=== PATIENT | female | born 2000 | race Caucasian/White ===

== ENCOUNTER 2023-11-06 14:20 | Outpatient (CLI) | payer BC, SELFPAY ==
--- NOTE | ~2023-11-06 | US_ITS ---
Pelvic ultrasound. Clinical History: First trimester , psoas days and viability Technique: Realtime transabdominal and transvaginal scanning of the pelvis was performed. Color flow Doppler and Doppler spectral analysis were performed. Findings: The uterus is anteverted, and contains an intrauterine gestation. [place]-rump length of 3.5 cm corresponds to an estimated gestational age of 10 weeks 3 days. heart rate is 173 bpm.. The right ovary is not visualized. No significant right ovarian or adnexal mass is seen. The left ovary measures 4.4 x 2.6 x 3.0 cm. No significant left ovarian or adnexal mass is seen. There is no evidence of free fluid in the cul de sac. Impression: Live intrauterine gestation, with estimated gestational age of 10 weeks 3 days. heart rate is 1 73 bpm. Reviewed, dictated and finalized at [facility]. Impression: Live intrauterine gestation, with estimated gestational age of 10 weeks 3 days. heart rate is 173 bpm.
== END 2023-11-06 14:21 | disposition home or self-care (01) ==
PROVIDERS: PCP Advanced Practice Midwife; Visit Provider Advanced Practice Midwife
DX: Z36.87 Encounter for antenatal screening for uncertain dates (principal); O36.80X0 Pregnancy with inconclusive fetal viability, not applicable or unspecified; Z3A.10 10 weeks gestation of pregnancy
CPT/HCPCS: 76801

== ENCOUNTER 2023-12-31 10:24 | Outpatient (CLI) | payer BC, SELFPAY ==
--- NOTE | ~2023-12-31 | US_ITS ---
EXAMINATION: US OB /maternal detail DATE: 12/31/2023 10:57 INDICATION: anatomic survey. TECHNIQUE: Real-time ultrasound of the pelvis was performed. COMPARISON: Ultrasound 11/06/2023 FINDINGS: There is a single living fetus in breech presentation. The placenta is posterior, 5.6 cm from the ce rvix. heart rate is 143 beats per minute (bpm). The amniotic fluid volume is subjectively charo l. The cervical length is 3.0 cm on transabdominal images, which is normal. The following biometric data were obtained: Biparietal diameter (BPD): 4.1 cm; head circumference (HC): 15.5 cm; abdominal circumference (AC): 13 .7 cm; femur length (FL): 2.7 cm. These measurements are concordant. Estimated weight is 248 g +/- 37 g, which correlates with the 65th percentile when 05/31/24 is u sed as estimated date of delivery. As single measurements, these parameters are each equal to the following estimated gestational ages: BPD: 18 weeks 4 days. HC: 18 weeks 3 days. AC: 19 weeks 1 days. FL: 18 weeks 0 days. estimated gestational age based solely on measurements from this exam is 18 weeks 4 days +/- 1 weeks 2 days. The cerebral ventricles, cerebellum, cisterna magna, nuchal fold, lip, and spine are normal. The hear t is normal. The diaphragm, stomach, kidneys, and bladder are normal. There are two umbilical arterie s to yield a 3-vessel cord. The cord insertion is normal. IMPRESSION: 1. Single living fetus in breech presentation. 2. Estimated weight is 248 g +/- 37 g, which correlates with the 65th percentile when 05/31/24 is used as estimated date of delivery. This date was set by ultrasound on 11/06/2023. 3. Normal anatomic survey. Reviewed, dictated and finalized at location A. LAYER IMPRESSION: 1. Single living fetus in breech presentation. 2. Estimated weight is 248 g +/- 37 g, which correlates with the 65th pe rcentile when 05/31/24 is used as estimated date of delivery. This date was set by ultrasound on 11/06/2023. 3. Normal anatomic survey.
== END 2023-12-31 10:25 | disposition home or self-care (01) ==
LOC: MICIMG 10:25
PROVIDERS: PCP Obstetrics & Gynecology Gynecology; Visit Provider Obstetrics & Gynecology Gynecology
DX: Z36.9 Encounter for antenatal screening, unspecified (principal)
CPT/HCPCS: 76805

== ENCOUNTER 2024-03-19 10:44 | Outpatient (RCR) | payer OTHER, SELFPAY ==
[2024-03-19 11:21] VITALS: BP 125/70; PULSE 109
== END 2024-06-10 18:00 | disposition home or self-care (01) ==
LOC: ANHOBOP 10:44
PROVIDERS: Visit Provider Obstetrics & Gynecology Gynecology
DX: O36.8130 Decreased fetal movements, third trimester, not applicable or unspecified (principal); Z3A.29 29 weeks gestation of pregnancy
CPT/HCPCS: 59025

== ENCOUNTER 2024-04-22 11:10 | Outpatient (CLI) | payer OTHER, SELFPAY ==
--- NOTE | ~2024-04-22 | US_ITS ---
IMPRESSION: Single intrauterine gestation in vertex presentation with cardiac activit y identified. Approximate gestational age is 34 weeks and 6 days. Estimated weight is within the 54th percentile, as detailed above. EXAM EXAMINATION: US OB follow up DATE: 04/22/2024 21:04 CDT INDICATION: Size smaller than dates COMPARISON: 12/31/2023 TECHNIQUE: Real-time transabdominal obstetric ultrasound. FINDINGS: 1. There is a single intrauterine gestation in vertex presentation. The placenta is posterior within the fundus. cardiac activity and movement is noted with a heart rate of 154 beats per minute. The following biometric data were obtained: Biparietal diameter (BPD): 8.8 cm; head circumference (HC): 31.7 cm; abdominal circumference (AC): 31.5 cm; femur length (FL): 6.3 cm. These measurements are concordant. Estimated weight is 2507 g +/- 376 g, which correlates with the 54th percentile when 05/28/2024 is used as estimated date of delivery. As single measurements, these parameters are each equal to the following estimated gestational ages: BPD: 35 weeks 5 days. HC: 35 weeks 4 days. AC: 35 weeks 3 days. FL: 32 weeks 5 days. estimated gestational age based solely on measurements from this exam is 34 weeks 6 days +/- 2 weeks 3 days. Amniotic fluid index measures 18.1 cm (within normal limits, between 8 and 25cm) IMPRESSION: Single intrauterine gestation in vertex presentation with cardiac activity identified. Approximate gestational age is 34 weeks and 6 days. Estimated weight is within the 54th percentile, as detailed above. Reviewed, dictated and finalized at location A.
== END 2024-04-22 11:11 | disposition home or self-care (01) ==
LOC: MICIMG 11:10
PROVIDERS: PCP Obstetrics & Gynecology Gynecology; Visit Provider Obstetrics & Gynecology Gynecology
DX: O36.5930 Maternal care for other known or suspected poor fetal growth, third trimester, not applicable or unspecified (principal); Z3A.00 Weeks of gestation of pregnancy not specified
CPT/HCPCS: 76816

== ENCOUNTER 2024-04-22 17:40 | Outpatient (CLI) | payer OTHER, SELFPAY ==
[2024-04-22 18:07] VITALS: BP 125/79; PULSE 124
[2024-04-22 18:30] VITALS: BP 112/60; PULSE 120; TEMP 37.1
--- NOTE | 2024-04-22 18:36 | PC.NURSE ---
Called Dr. Paredes, update on pt, leaking, DFM, negative ROM plus, pt marking movement 6 times in thirty minutes, tracing, and blood pressure. Orders received to discharge pt with instructions to keep next scheduled appointment and when to return to the unit.
[2024-04-22 18:38] VITALS: BP 125/79; PULSE 124
--- NOTE | 2024-04-22 18:43 | PC.NURSE ---
Pt discharged with instructions to keep next scheduled appointment and when to return to the unit, pt verbalizes understanding.
[2024-04-22 18:49] LABS: OBXCEM ROM Plus Negative (Negative)
== END 2024-04-22 18:43 | disposition home or self-care (01) ==
LOC: ANHOBOP 17:52 → ANHOBPP 17:55
PROVIDERS: Visit Provider Obstetrics & Gynecology Gynecology
DX: O42.90 Premature rupture of membranes, unspecified as to length of time between rupture and onset of labor, unspecified weeks of gestation (principal); Z3A.00 Weeks of gestation of pregnancy not specified
CPT/HCPCS: 59025; 84112; 99199

== ENCOUNTER 2024-04-28 12:48 | Outpatient (CLI) | payer OTHER, SELFPAY ==
--- NOTE | 2024-04-28 13:00 | PC.NURSE ---
Patient states that her foot pain woke her up during the night. R foot was noted to be more swollen than the left. Patient unable to flex much without pain. Good pedal pulse noted. Foot is also tender to the touch on the inner aspect and radiating toward the ankle.
--- NOTE | 2024-04-28 13:30 | PC.NURSE ---
Dr Paredes informed of R foot pain, good pulses, no HTN/Pre E symptoms other than swelling.
--- NOTE | 2024-04-28 13:31 | PC.NURSE ---
Orders from Dr Paredes instructed to have patient evaluated in the ER.
[2024-04-28 13:38] VITALS: BP 124/68; PULSE 103
--- NOTE | 2024-04-28 13:55 | PC.NURSE ---
Patient taken to ER for evaluation. Plan discussed with patient and spouse, agreeable to being seen in ER.
== END 2024-04-28 13:55 | disposition home or self-care (01) ==
LOC: ANHOBOP 12:52 → ANHOBPP 12:53
PROVIDERS: Visit Provider Obstetrics & Gynecology Gynecology
DX: O26.899 Other specified pregnancy related conditions, unspecified trimester (principal); R60.9 Edema, unspecified
CPT/HCPCS: 59025; 99199

== ENCOUNTER 2024-04-28 13:53 | Emergency (ER) | payer OTHER, SELFPAY ==
--- NOTE | ~2024-04-28 | US_ITS ---
EXAMINATION: US venous doppler LE RT DATE: 04/28/2024 15:08 INDICATION: Right lower limb pain and swelling TECHNIQUE: Grayscale ultrasound images without and with compression and Doppler ultrasound images of the right lower extremity veins were obtained. COMPARISON: None. FINDINGS: The visualized portions of right common femoral vein, profunda (deep) femoral vein, femoral vein, pop liteal vein, peroneal trunk, posterior tibial veins, peroneal veins, gastrocnemius vein and greater s aphenous vein outflow are patent. IMPRESSION: 1. No deep venous thrombosis in the right lower limb. Reviewed, dictated and finalized at location B.
--- NOTE | ~2024-04-28 | XR_ITS ---
XR foot RT min 3V Ordering provider: Ya Ernandez History: . R foot pain . Comparison: None. FINDINGS: BONES: No acute fracture or dislocation. JOINT SPACES: Normal. No tarsal coalition. SOFT TISSUES: Normal. IMPRESSION: No acute osseous abnormality of the right foot. Reviewed, dictated and finalized at location A.
[2024-04-28 13:59] VITALS: BP 132/82; PULSE 115; RESP 20; TEMP 36.6; O2SAT 100
--- NOTE | 2024-04-28 14:16 | ED_ITS ---
HPI - Extremity Injury (Lower) General Chief Complaint: Extremity Injury, Lower <Ya Ernandez APRN - Last Filed: 04/28/24 14:17> Stated Complaint: left foot pain <Ya Ernandez APRN - Last Filed: 04/28/24 14:17> Time Seen by Provider: 04/28/24 14:10 <Ya Ernandez APRN - Last Filed: 04/28/24 14:17> Focused HPI: Patient is a 23-year-old female who presents to the ER with right lower extremity pain, tingling, and swelling. She reports she is approximately 35 weeks and woke up this morning with extreme right ankle/foot pain. Patient denies any history of blood clots or other medical history. She denies any chest pain, shortness of breath, abdominal pain, recent fevers. GENERAL: Well-appearing, well-nourished, and in no acute distress. HEAD: Normocephalic, atraumatic. CHEST: Clear to auscultation. ?No respiratory distress. HEART: Regular rate and rhythm.? NEURO: ?Alert and oriented x3. Patient screened in triage and initial orders placed.? ?Additional care and disposition to be based upon?diagnostic testing and treatment. <Ya Ernandez APRN - Last Filed: 04/28/24 14:17> History of Present Illness HPI Narrative: I agree with the above HPI <Kosta Parsons MD - Last Filed: 04/28/24 21:45> Exam Narrative: APPEARANCE: Well appearing, no pain, no distress, well-nourished. HEAD: normocephalic, atraumatic. EYES: PERRLA/EOMI, conjunctivae clear. NOSE: Normal no drainage EARS:TMS clear with good light reflex. THROAT: Pharynx clear, no exudate. NECK: Supple. No adenopathy, no masses. RESPIRATORY: Airway patent, respirations nonlabored. Clear to auscultation bilaterally, no rales, rhonchi, wheezing. CARDIOVASCULAR: Regular rate and rhythm without murmurs rubs or gallops. ABDOMINAL: Soft, nontender, nondistended, normal bowel sounds MUSCULOSKELETAL: Mild lower extremity swelling for bilateral lower extremity NEURO: Alert. Cranial nerves II through XII intact. Good gait. Good coordination SKIN: Warm, dry. Normal Color PSYCHIATRIC: Normal affect/mood. <Kosta Parsons MD - Last Filed: 04/28/24 21:45> Course Vital Signs Vital signs: Vital Signs Temperature 97.8 F 04/28/24 13:59 Pulse Rate 115 H 04/28/24 13:59 Respiratory Rate 20 04/28/24 13:59 Blood Pressure 132/82 04/28/24 13:59 Pulse Oximetry 100 04/28/24 13:59 Oxygen Delivery Room Air 04/28/24 13:59 Temperature 97.8 F 04/28/24 16:24 Pulse Rate 117 H 04/28/24 16:24 Respiratory Rate 16 04/28/24 16:24 Blood Pressure 120/78 04/28/24 16:24 Pulse Oximetry 100 04/28/24 16:24 Oxygen Delivery Room Air 04/28/24 13:59 <Ya Ernandez [employer] - Last Filed: 04/28/24 14:17> Vital Signs Temperature 97.8 F 04/28/24 13:59 Pulse Rate 115 H 04/28/24 13:59 Respiratory Rate 20 04/28/24 13:59 Blood Pressure 132/82 04/28/24 13:59 Pulse Oximetry 100 04/28/24 13:59 Oxygen Delivery Room Air 04/28/24 13:59 Temperature 97.8 F 04/28/24 16:24 Pulse Rate 117 H 04/28/24 16:24 Respiratory Rate 16 04/28/24 16:24 Blood Pressure 120/78 04/28/24 16:24 Pulse Oximetry 100 04/28/24 16:24 Oxygen Delivery Room Air 04/28/24 13:59 <Kosta Parsons MD - Last Filed: 04/28/24 21:45> MDM - Extremity Injury (Lower) MDM Narrative Medical decision making narrative: 23-year-old female that is 35 weeks presented emergency department for evaluation for lower extremity swelling and foot pain. Patient is mildly tachycardic but has had persistent tachycardia and patient is very anxious about being here. Patient was offered further workup and IV fluids but patient declined. Ultrasound was negative for DVT x-ray was negative for fracture. Suspect this is swelling associated with . Patient was advised to drink plenty of fluids and to elevate her feet. All questions concerns were addressed. <Kosta Parsons MD - Last Filed: 04/28/24 21:45> Differential Diagnosis Differential diagnosis: Likely ankle sprain and strain and other (DVT) <Kosta Parsons MD - Last Filed: 04/28/24 21:45> Discharge Plan Discharge Clinical Impression: Localized swelling of both lower legs <Ya Ernandez APRN - Last Filed: 04/28/24 14:17> Patient Disposition: Home, Self-Care <Ya Ernandez APRN - Last Filed: 04/28/24 14:17> Condition: Stable <Ya Ernandez APRN - Last Filed: 04/28/24 14:17> Instructions: Antibiotic Form, Leg Edema (ED) <Ya Ernandez APRN - Last Filed: 04/28/24 14:17> Additional Instructions: Wear compression stockings, elevate your feet at nighttime. Have close follow-up with your primary care physician and with [facility]. If you have any worsening symptoms then please call or return to the emergency department. <Ya Ernandez APRN - Last Filed: 04/28/24 14:17> Patient Language: Tristanian <Ya Ernandez APRN - Last Filed: 04/28/24 14:17> Follow-up/Referrals: UNKNOWN,DOCTOR [Primary Care Provider] - <Ya Ernandez APRN - Last Filed: 04/28/24 14:17>
[2024-04-28 16:24] VITALS: BP 120/78; PULSE 117; RESP 16; TEMP 36.6; O2SAT 100
== END 2024-04-28 16:41 | disposition home or self-care (01) ==
PROVIDERS: Emergency Provider Emergency Medicine
DX: O26.893 Other specified pregnancy related conditions, third trimester (principal); R22.43 Localized swelling, mass and lump, lower limb, bilateral; Z3A.35 35 weeks gestation of pregnancy
CPT/HCPCS: 73630; 93971; 99284

== ENCOUNTER 2024-05-17 11:18 | Outpatient (CLI) | payer OTHER, SELFPAY ==
--- NOTE | ~2024-05-17 | US_ITS ---
EXAMINATION: US OB follow up DATE: 05/17/2024 11:48 INDICATION: Estimated size less than expected for estimated gestational age TECHNIQUE: Real-time ultrasound of the pelvis was performed. The interpreting radiologist was not pre sent for the study. COMPARISON: None. FINDINGS: There is a single living fetus in vertex presentation. The placenta is posterior fundal and not low- lying. heart rate is 142 beats per minute (bpm). The amniotic fluid index is 12.2 cm, which is normal (5th%-95%: 7.3-23.9 cm at 38 weeks estimated gestational age). The following biometric data were obtained: BPD: 9.4 cm -> 38 weeks 2 days Head circumference: 33.5 cm -> 38 weeks 2 days Abdominal circumference: 32.7 cm -> 36 weeks 4 days Femur length: 6.9 cm -> 35 weeks 1 days These measurements are concordant. Head circumference to abdominal circumference ratio: 1.02 (normal range 0.92-1.05). Estimated weight: 2989 g (+/-) 448 g or 6 lbs. 9 oz. (+/-) 1 lb. 0 oz. IMPRESSION: 1. Single living fetus in vertex presentation with heart rate of 142 bpm. 2. Normal amniotic fluid index of 12.2 cm. 3. Estimated weight is 27th percentile by Hadlock criteria when 05/31/2024 is used as the estima dillan date of delivery (RANDI). This is decreased from 55th percentile on study dated 04/22/2024 Please co rrelate with clinical information or earlier ultrasounds for most accurate RANDI. Reviewed, dictated and finalized at location A. IMPRESSION: 1. Single living fetus in vertex presentation with heart rate of 142 bpm. 2. Normal amniotic fluid index of 12.2 cm. 3. Estimated weight is 27th percentile by Hadlock criteria when 05/31/2024 is used as the estimated date of delivery (RANDI). This is decreased from 55th p ercentile on study dated 04/22/2024 Please correlate with clinical information o r earlier ultrasounds for most accurate RANDI.
== END 2024-05-17 11:19 | disposition home or self-care (01) ==
LOC: MICIMG 11:18
PROVIDERS: PCP Obstetrics & Gynecology Gynecology; Visit Provider Obstetrics & Gynecology Gynecology
DX: O36.5930 Maternal care for other known or suspected poor fetal growth, third trimester, not applicable or unspecified (principal)
CPT/HCPCS: 76816

== ENCOUNTER 2024-05-22 17:31 | Outpatient (CLI) | payer OTHER, SELFPAY ==
[2024-05-22 17:50] VITALS: BP 148/84; PULSE 131
[2024-05-22 17:57] VITALS: BMI 29.5
[2024-05-22 18:00] VITALS: BP 135/77; PULSE 108
[2024-05-22 18:02] LABS: Basophils Percent Auto 0.2 % (0.2-1.2); Eosinophils Absolute Auto 0.1 K/mm3 (0-0.3); Eosinophils Percent Auto 0.8 % (0-4.4); Hematocrit 29.9 % (37.0-47.0); Immature Granulocyte Absolute 0.08 K/mm3 (0.00-0.031); Immature Granulocyte Percent A 0.9 % (0-0.5); Lymphocytes Absolute Auto 1.94 K/mm3 (0.9-3.2); Lymphocytes Percent Auto 21.8 % (18.3-44.2); Mean Corpuscular HGB Conc 30.1 g/dl (32-36); Mean Corpuscular Hemoglobin 24.7 pg (26-34); Mean Corpuscular Volume 81.9 fl (80-100); Mean Platelet Volume 10.7 fl (7.4-10.4); Monocytes Absolute Auto 0.7 K/mm3 (0.1-0.6); Monocytes Percent Auto 8.3 % (2.6-8.5); Platelet Count Result 354 k/mm3 (150-375); Red Blood Count 3.65 M/mm3 (4.2-5.4); White Blood Count 8.9 K/mm3 (4.5-10.0)
[2024-05-22 18:15] VITALS: BP 135/81; PULSE 115
[2024-05-22 18:15] LABS: Alanine Aminotransferase 12 U/L (6-35); Albumin Level 3.8 g/dL (3.5-5.1); Alkaline Phosphatase 208 U/L (38-126); Anion Gap 9 mmol/L (4-12); Aspartate Amino Transferase 20 U/L (14-36); Bilirubin,Total 0.3 mg/dL (0.2-1.3); Blood Urea Nitrogen 2 mg/dL (7-17); Carbon Dioxide 21 mmol/L (22-30); Chloride 105 mmol/L (98-107); Estimated CRCL calculation 116 ml/min; Estimated Glomerular Filt Rate > 60; Glucose 106 mg/dL (65-110); Potassium 3.9 mmol/L (3.4-5.0); Sodium 135 mmol/L (137-145); Uric Acid 3.7 mg/dL (2.5-7.5)
[2024-05-22 18:16] LABS: Add Urine Microscopic? YES; Appearance Urine Turbid (Clear); Bacteria Urine 4+ /hpf; Bilirubin Urine Negative (Negative); Blood Urine Non-Hemolyzed Trace (Negative); Color Urine Yellow (Yellow); Glucose Urine UA Negative (Negative); Ketones Urine Negative (Negative); Leukocyte Esterase Ur 3+ LEU/UL (Negative); Need Manual Microscopic Reviewed; Nitrate Urine Negative (Negative); Protein Urine Negative (Negative); RBC Urine 0-2 /hpf (0-2); Specific Grav Ur 1.003 (1.001-1.035); Squamous Epithelial Cell Urine Moderate /hpf (Few); Urobilinogen Urine 0.2 mg/dL (<2.0); WBC Urine 51-100 /hpf (0-3)
[2024-05-22 18:30] VITALS: BP 134/80; PULSE 115
--- NOTE | 2024-05-22 18:43 | PC.NURSE ---
RN called Dr. Paredes called and notified of results of UA and CMP as well as latest blood pressures. Orders received for 24 hour urine, discharge, and for the patient to follow up with her this upcoming sunday
[2024-05-22 19:22] LABS: Creatinine Urine 16.5 mg/dL; Total Protein Urine Random 18 mg/dL; Ur Ttl Prot Creatinine Ratio 1.09 mg/mg (0-0.20)
== END 2024-05-22 18:55 | disposition home or self-care (01) ==
LOC: ANHOBOP 17:36 → ANHOBPP 17:38
PROVIDERS: Visit Provider Obstetrics & Gynecology Gynecology
DX: O13.9 Gestational [pregnancy-induced] hypertension without significant proteinuria, unspecified trimester (principal); Z3A.00 Weeks of gestation of pregnancy not specified
CPT/HCPCS: 36415; 59025; 80053; 81001; 82570; 84156; 84550; 85025; 99199

== ENCOUNTER 2024-05-23 20:42 | Outpatient (CLI) | payer OTHER, SELFPAY ==
[2024-05-23 21:04] LABS: Collection Time Urine 24 HOURS
[2024-05-23 21:29] LABS: Creatinine Urine 39.4 mg/dL; Serum Creat 0.55; Total Protein Urine Random 16 mg/dL
[2024-05-23 21:51] LABS: Creatinine Clearance Urine 130.3 ml/min (75-125); Patient Weight 151 Lbs; Specific Gravity Ur 1.015; Total Protein Urine 24 Hr 400 mg/24hr (28-141); Total Volume 24 Hour Urine 2500 ml
== END 2024-05-23 20:43 | disposition home or self-care (01) ==
PROVIDERS: Visit Provider Obstetrics & Gynecology Gynecology
DX: O26.893 Other specified pregnancy related conditions, third trimester (principal); M79.89 Other specified soft tissue disorders; M79.661 Pain in right lower leg; R20.2 Paresthesia of skin; Z3A.00 Weeks of gestation of pregnancy not specified
CPT/HCPCS: 81050; 82575; 84156

== ENCOUNTER 2024-05-25 11:02 | Inpatient (IN) | payer OTHER, SELFPAY ==
[2024-05-25] VITALS (174 sets, daily range): BP systolic 90–166; BP diastolic 24–118; PULSE 25–259; TEMP 36.6–36.9; O2SAT 92–100; BMI 29.5
[2024-05-25 12:07] LABS: Basophils Percent Auto 0.5 % (0.2-1.2); Eosinophils Absolute Auto 0.1 K/mm3 (0-0.3); Eosinophils Percent Auto 0.8 % (0-4.4); Hematocrit 29.7 % (37.0-47.0); Immature Granulocyte Absolute 0.08 K/mm3 (0.00-0.031); Immature Granulocyte Percent A 0.9 % (0-0.5); Lymphocytes Percent Auto 21.8 % (18.3-44.2); Mean Corpuscular HGB Conc 30.3 g/dl (32-36); Mean Corpuscular Hemoglobin 24.4 pg (26-34); Mean Corpuscular Volume 80.5 fl (80-100); Mean Platelet Volume 10.8 fl (7.4-10.4); Monocytes Absolute Auto 0.6 K/mm3 (0.1-0.6); Monocytes Percent Auto 6.8 % (2.6-8.5); Neutrophils Percent Auto 69.2 % (45.5-73.1); Platelet Count Result 361 k/mm3 (150-375); Red Blood Count 3.69 M/mm3 (4.2-5.4); Red Cell Distribution Width 15.2 % (11.5-14.5); White Blood Count 8.7 K/mm3 (4.5-10.0)
[2024-05-25] MEDS: LACTATED RINGERS 1,000 ML 125 ML IV CONT (12:13)
[2024-05-25] MEDS: AMPICILLIN 2 GM/NS 100 ML 2 GM/100 ML BAG IVPB (12:15)
[2024-05-25] MEDS: OXYTOCIN 30 UNITS/NS 500 ML 30 UNITS/500 ML BAG 6 UNITS IV CONT (12:25)
--- NOTE | 2024-05-25 12:26 | LDADM ---
This patient, Cinthya Jones, was admitted to Labor/Delivery/Recovery 107 on 05/25/24 at 11:02. Plans for labor, pain management and were discussed with patient. Patient/family oriented to hospital policies and general routines including ID bracelet, bed and alarms, visiting hours, pain management, procedures, bathroom and other care routines, personal items, smoking policy, room service/diet and guest tray routines, infant security routines, and visiting hours. Patient/Family are encouraged to report perceived risks to care and to ask questions if they do not understand what they are told or what they should do. See OBIX for further documentation.
[2024-05-25 12:56] LABS: Syphilis IgG/IgM Antibody Negative (Negative)
[2024-05-25 13:01] LABS: HIV 1/2 Ab P24 Ag Result Negative (Negative)
[2024-05-25] MEDS: ONDANSETRON INJ 4 MG/2 ML VIAL IV PUSH (14:59)
[2024-05-25] MEDS: fentaNYL CITRATE INJ (*CRX) 100 MCG/2 ML VIAL 50 MCG IV PUSH (14:59)
--- NOTE | 2024-05-25 15:40 | WPDANESEPP ---
Anes - Eval Pre Procedure Procedure: Labor epidural Date/Time: 05/25/24 15:40 Surgeon: Lena Preop Diagnosis: Pain during labor Pre Op Diagnosis: IOL Patient Data Age: 23 Gender: F Height: 1.52 m Weight: 68.6 kg Last Vital Signs Pulse 111 H 05/25/24 15:31 BP 141/90 H 05/25/24 15:31 Allergies Allergy/AdvReac Type Severity Reaction Status Date / Time No Known Allergies Allergy Verified 05/23/24 11:47 Home Medications ?Medication ?Instructions ?Recorded ?Confirmed ?Type aspirin 81 mg capsule 81 mg PO DAILY 05/23/24 05/23/24 History vits no.130-ferrous fum 1 tablet PO DAILY 05/23/24 05/23/24 History 27 mg iron-folic acid 800 mcg tablet ( Vitamin) Laboratory Tests 05/25/24 11:52 WBC 8.7 K/mm3 (4.5-10.0) RBC 3.69 L M/mm3 (4.2-5.4) Hgb 9.0 L g/dL (12.0-15.0) Hct 29.7 L % (37.0-47.0) MCV 80.5 fl (80-100) MCH 24.4 L pg (26-34) MCHC 30.3 L g/dl (32-36) RDW 15.2 H % (11.5-14.5) Plt Count 361 k/mm3 (150-375) MPV 10.8 H fl (7.4-10.4) Immature Gran % (Auto) 0.9 H % (0-0.5) Neut % (Auto) 69.2 % (45.5-73.1) Lymph % (Auto) 21.8 % (18.3-44.2) [place] % (Auto) 6.8 % (2.6-8.5) Eos % (Auto) 0.8 % (0-4.4) Baso % (Auto) 0.5 % (0.2-1.2) Lymph # (Auto) 1.90 K/mm3 (0.9-3.2) [place] # (Auto) 0.6 K/mm3 (0.1-0.6) Eos # (Auto) 0.1 K/mm3 (0-0.3) Baso # (Auto) 0.0 K/mm3 (0.0-0.1) Abs Immat Gran (auto) 0.08 H K/mm3 (0.00-0.031) Absolute Neuts (auto) 6.0 K/mm3 (1.3-6.7) Absolute Nucleated RBC 0.000 K/mm3 (0.0-0.012) Nucleated RBC % 0.0 % (0.0-0.2) Syphilis IgG/IgM Ab Negative (Negative) HIV 1&2 Ab/P24 Ag 4thGn Negative (Negative) Blood Type A Positive Antibody Screen Negative Patient hx anesthesia problems: none Family hx anesthesia problems: none Results Review: All pre-operative results and documents have been reviewed as part of the pre-operative evaluation. [facility] Family History Family History Grandparent Cancer Grandparent Colon cancer Hyperlipemia Social History Social History Smoking status: Never smoker Second hand tobacco smoke exposure: No Substance use: never Do You Feel Safe in your Home?: Yes Lack of Transportation: No Lack of Food: Never True Current Housing: I Have Housing Concerned About Future Housing: No Difficulty Paying Gas/Electric Bills: No Difficulty Paying for Meds: No Currently Unemployed: No Education: Bachelor's Degree Difficulty w/ Childcare or Family Care: No Spiritual care concerns: No Exam Day of Procedure 05/25/24 15:40 Patient weight: overweight Heart: regular rate and rhythm Lungs: clear to auscultation Airway: Mallampati scale Neurological: alert and oriented
[2024-05-25] MEDS: LACTATED RINGERS 1,000 ML 999 ML IV CONT ×2 (15:42→20:16)
[2024-05-25] MEDS: AMPICILLIN 1 GM/NS 50 ML 1 GM/50 ML BAG IVPB ×2 (15:49→20:15)
--- NOTE | 2024-05-25 16:36 | WPDOBADMIT ---
Obstetrics - Admit Note Admission Note: record reviewed. No pertinent additions to the history and/or any subsequent changes in the physical findings that are not consistent with the expected course of the were found. Additions to the history and/or subsequent changes in the physical findings follow. Cervix 5/100/-2 BBOW Declines AROM. FHTs reactive
--- NOTE | 2024-05-25 22:10 | PM.OBPNLAB ---
Pain Control Date/time seen: 05/25/24 22:10 Pain control: epidural Comments: Patient feeling increased pressure and 9 cm. Requesting I now rupture her membranes because she just wants to be done. Returned to hospital to rupture membranes Pelvic Exam Dilation (cm): 10 (minimal anterior lip) station: 0 Amniotic membrane status: Ruptured Status status: Category l Assessment and Plan Assessment: induction ongoing Plan: continuous present management (begin pushing)
--- NOTE | 2024-05-25 23:35 | PM.OBPRVD ---
OB - Vaginal Delivery Note Procedure Delivery date: 05/25/24 Events: Elective Induction of Labor Induction method: Per Pitocin Protocol Delivery monitor: External FHT and External Uterine Route of delivery: Episiotomy description: None Laceration Description: Perineal - 2nd Degree Delivery repair: vicryl (3-0) Specimen: No Quantitative Blood Loss (ml): 100 Anesthesia type: Local Disposition: Floor Complications: No immediate complications Baby Date of : 05/25/24 Gestational Age by Date: 39 Infant gender: Male presentation: vertex position: Right Occiput Anterior Placenta delivery description: Spontaneous Cord Vessel Description: 3 Vessels and Delayed Cord Clamping score one minute: 8 score five minutes: 9
--- NOTE | 2024-05-25 23:36 | P.DS_ITS ---
DS: Admitting Diagnosis Discharge Date 05/27/24 Admitting Diagnosis IUP 39 wk for NAVJOT DS: Discharge Diagnosis Discharge Diagnosis (1) (normal spontaneous vaginal delivery): Code(s): O80 - Encounter for full-term uncomplicated delivery Status: Acute (2) Preeclampsia: Code(s): O14.90 - Unspecified pre-eclampsia, unspecified trimester Status: Acute OB - DS: Summary OB Procedures : Ultrasound OB Procedures Intrapartum: Spontaneous Vag Delivery OB Procedures: : None Peripartum Data Delivery Method: Natural Vaginal Laceration Description: Perineal - 2nd Degree Episiotomy description: None complications: none Status at Discharge Functional status at discharge: independent ambulation Overall status at discharge: patient is progressing back to baseline Time Spent with Patient Time attestation: Total time spent providing and/or coordinating discharge services: DS: Data Data Completed and Pending Labs on day of discharge: Labs from last 24 hours 05/25/24 11:52 WBC 8.7 RBC 3.69 L Hgb 9.0 L Hct 29.7 L MCV 80.5 MCH 24.4 L MCHC 30.3 L RDW 15.2 H Plt Count 361 MPV 10.8 H Immature Gran % (Auto) 0.9 H Neut % (Auto) 69.2 Lymph % (Auto) 21.8 [place] % (Auto) 6.8 Eos % (Auto) 0.8 Baso % (Auto) 0.5 Lymph # (Auto) 1.90 [place] # (Auto) 0.6 Eos # (Auto) 0.1 Baso # (Auto) 0.0 Abs Immat Gran (auto) 0.08 H Absolute Neuts (auto) 6.0 Absolute Nucleated RBC 0.000 Nucleated RBC % 0.0 Syphilis IgG/IgM Ab Negative HIV 1&2 Ab/P24 Ag 4thGn Negative Blood Type A Positive Antibody Screen Negative Discharge Plan Discharge Attending physician on discharge: Bettye Paredes Discharging Clinician: Bettye Paredes Anticipated Discharge Date/Time: 05/27/24 23:37 Patient Disposition: Home Activity: may shower, may drive after 2 weeks and pelvic rest Diet: regular Patient Instructions: Antibiotic Form Patient Language: Swedish Stand Alone Forms: General Discharge Information Follow-up/Referrals: Bettye Paredes MD [Physician] - 1 Week (BP check and 6 wk pp) Discharge Medications: New ferrous sulfate [Iron (ferrous sulfate)] 325 mg (65 mg iron) tablet 325 mg PO DAILY Qty: 60 3RF Continued Vitamin 27 mg iron- 800 mcg tablet 1 tablet PO DAILY Discontinued aspirin 81 mg capsule 81 mg PO DAILY Date of admission: 05/25/24 11:02 Primary Care Provider: UNKNOWN,DOCTOR Admitting Provider: Bettye Paredes Attending physician on admission: Bettye Paredes Condition: Stable
[2024-05-25] MEDS: OXYTOCIN 30 UNITS/NS 500 ML 30 UNITS/500 ML BAG 125 UNITS IV CONT (23:55)
[2024-05-26] VITALS (15 sets, daily range): BP systolic 84–136; BP diastolic 46–95; PULSE 97–124; RESP 16–18; TEMP 36.2–37.1; O2SAT 95–100
[2024-05-26] MEDS: IBUPROFEN 600 MG TABLET PO (02:44)
[2024-05-26] MEDS: BENZOCAINE 20% AER SPR (*SP) 56 GM CAN 1 SPRAY TOPICAL (02:45)
[2024-05-26] MEDS: WITCH HAZEL 40 PADS 1 PAD TOPICAL (02:45)
[2024-05-26 05:38] LABS: Hematocrit 25.2 % (37.0-47.0); Hemoglobin 7.7 g/dL (12.0-15.0)
--- NOTE | 2024-05-26 07:15 | PC.NURSE ---
0715- Epidural catheter intact in back, pt denies headache
--- NOTE | 2024-05-26 07:25 | P.PNAN_ITS ---
Anes - Prog Note Post-Op Date/Time: 05/26/24 07:25 Cardiovascular status: normal Respiratory status: normal Airway patency: baseline Mental status: baseline Post-Op hydration status: normal Vital Signs: Last Vital Signs Temp 37.1 C 05/26/24 02:20 Pulse 108 H 05/26/24 02:20 Resp 16 05/26/24 02:20 BP 135/92 H 05/26/24 02:20 Pulse Ox 98 05/26/24 02:20 O2 Del Method Room Air 05/26/24 02:20 Pain Score (VAS): 1 I/O: Intake & Output 05/25/24 05/25/24 05/26/24 15:59 23:59 07:59 Intake Total 1000 1050 Output Total 100 200 75 Balance 900 850 -75 Laboratory Tests 05/26/24 05:25 05/25/24 05/26/24 11:52 05:25 WBC 8.7 RBC 3.69 L Hgb 9.0 L 7.7 L Hct 29.7 L 25.2 L MCV 80.5 MCH 24.4 L MCHC 30.3 L RDW 15.2 H Plt Count 361 MPV 10.8 H Immature Gran % (Auto) 0.9 H Neut % (Auto) 69.2 Lymph % (Auto) 21.8 [place] % (Auto) 6.8 Eos % (Auto) 0.8 Baso % (Auto) 0.5 Lymph # (Auto) 1.90 [place] # (Auto) 0.6 Eos # (Auto) 0.1 Baso # (Auto) 0.0 Abs Immat Gran (auto) 0.08 H Absolute Neuts (auto) 6.0 Absolute Nucleated RBC 0.000 Nucleated RBC % 0.0 Syphilis IgG/IgM Ab Negative HIV 1&2 Ab/P24 Ag 4thGn Negative Blood Type A Positive Antibody Screen Negative Post-procedural complaints: none Patient Feedback: Patient satisfied with anesthetic care.
[2024-05-26] MEDS: ACETAMINOPHEN 325 MG TABLET 650 MG PO (07:38)
--- NOTE | 2024-05-26 08:15 | PC.NURSE ---
Patient called out for assistance. Baby is spitting up thick mucous and needs a diaper change. Dad is taking care of using the bulb syringe to suction secretions from baby's mouth. Baby is gagging when offered the nipple so we will give him about ten minutes to recover and then we will try to latch again. Baby was very eager after ten minutes and was sucking on his fingers. Mom noted that he was demonstrating feeding cues. We positioned baby in cross cradle and mom was able to latch him with minimal assistance. She has very soft breast tissue and is able to make a 'bite' for baby. He opens with a wide gape and needs little encouragement to suckle. He sustains good sucking bursts between short pauses. Encouraged mom to keep him going at the breast until he is satisfied and then to try burping him. She may offer the second breast if he is still eager and she is advised to call for latching assistance if needed. Dad present and supportive throughout. Updated RN.
[2024-05-26] MEDS: MULTIVIT/MIN/PREN/FOL AC/IRON TABLET 1 TAB PO (08:55)
[2024-05-26] MEDS: POLYSACCHARIDE IRON COMPLEX 150 MG CAPSULE PO ×2 (08:55→17:33)
[2024-05-26] MEDS: DOCUSATE SODIUM 100 MG CAPSULE PO ×2 (08:56→17:33)
--- NOTE | 2024-05-26 10:30 | PC.NURSE ---
Mother called out for assistance with latch. We placed baby in cross cradle position again and mom was shown how to place her hand low on baby's head behind his ears. He is an eager nurser and latches easily. He did roll his lower lip in so mom was shown how to identify and correct on her own or with assistance from a support person. Encouraged mother to keep baby close throughout the feeding with his chin on the breast. Mom is doing well with and is learning quickly how to identify an effective feeding. RN updated.
--- NOTE | 2024-05-26 14:59 | PC.NURSE ---
Dr. logan notified that patient still has epidural catheter in her back and that she has no headache. Orders received removed epidural catheter.
--- NOTE | 2024-05-26 15:10 | PC.NURSE ---
Epidural catheter removed, tip intact. Bandaid applied.
--- NOTE | 2024-05-26 15:13 | PC.NURSE ---
Dr. Paredes notified of post Hgb, 7.7. IV saline lock may be removed at this time so pt can shower. Will Continue to monitor pulse and BP. Dr. Paredes will be by after office hours to see patient
--- NOTE | 2024-05-26 16:37 | PM.OBPNVD ---
OB - PN: Subj Subjective Date/time seen: 05/26/24 16:37 Patient comments: no complaints, pain well controlled and other (No PIH sx; No anemia sx) [place] baby status: doing well OB - PN: Obj Data Labs 05/26/24 05:25 Labs: Laboratory Results - last 24 hr 05/26/24 05:25 Hgb 7.7 L Hct 25.2 L OB - PN A/P Assessment and Plan (1) Preeclampsia: Code(s): O14.90 - Unspecified pre-eclampsia, unspecified trimester Status: Acute Assessment and Plan: 24 hour urine turned in over weekend showed 400 mg protein. BP stable. I/O's good Plan day: 1 Plan: routine care Time Spent With Patient Time: Total time spent is greater than 50% in coordination of care (as documented) at patient's floor/unit and/or counseling patient: Exam : Bimanual exam- vagina & uterus: other (Uterus firm, nt @U)
[2024-05-27 03:20] VITALS: BP 128/82; PULSE 99
[2024-05-27 07:15] VITALS: BP 133/95; PULSE 86; RESP 18; TEMP 36.6; O2SAT 98
--- NOTE | 2024-05-27 07:46 | P.PNOB_ITS ---
OB - PN: Subj Subjective Date/time seen: 05/27/24 07:46 Patient comments: no complaints, pain well controlled and other (No PIH sx) baby status: doing well OB - PN: Obj Data Labs 05/26/24 05:25 OB - PN A/P Assessment and Plan (1) Preeclampsia: Code(s): O14.90 - Unspecified pre-eclampsia, unspecified trimester Status: Acute Assessment and Plan: No sx. BP decreased. Good I/O's Plan day: 2 Plan: routine care, discharge home and other (uncertain bc plans) Time Spent With Patient Time: Total time spent is greater than 50% in coordination of care (as documented) at patient's floor/unit and/or counseling patient: Exam 2 : Bimanual exam- vagina & uterus: other (Uterus firm, nt @U)
[2024-05-27] MEDS: DOCUSATE SODIUM 100 MG CAPSULE PO (09:49)
[2024-05-27] MEDS: POLYSACCHARIDE IRON COMPLEX 150 MG CAPSULE PO (09:49)
[2024-05-27] MEDS: MULTIVIT/MIN/PREN/FOL AC/IRON TABLET 1 TAB PO (09:49)
--- NOTE | 2024-05-27 10:00 | PC.NURSE ---
Patient called out for assistance. Baby is very sleepy post circumcision. It has been about 4 hours since his last feeding. We tried to awaken him with stimulation and position change but he did not wake or give any feeding cues/effort. Mom is advised to snuggle and comfort baby and observe for any feeding cues. We will try again in 30 minutes to an hour if he has not wakened before then. Mom states that infant has been latching and feeding very well overnight and his weight is good so there is no need for alternative intervention at this time.
--- NOTE | 2024-05-27 11:30 | PC.NURSE ---
Checked in with patient to see if woke to feed. Mom says she has tried again but he is still very sleepy. We stimulated him to rouse him and he did give some effort to latch and suckled off and on. He released the breast and relatched several times. Mom has a small scab on her left nipple and we reviewed maintaining a deep latch throughout the feeding and applying lanolin or breastmilk for healing/comfort. Mom is encouraged to keep him at the breast for as long as she can but that if this is a short and sleepy feeding that is acceptable. Reviewed cluster feeding and normal infant behaviors in the evenings/nights. Mom is comfortable latching baby independently without pain (besides initial latch on tenderness that dissipates). We reviewed the mom/baby guide, resources for outpatient assistance, and common concerns (mastitis, engorgement, plugged ducts). Mom has her own pump, a Mom Coleen. Exclusive plan added to infant's discharge plan. Patient states no further questions or concerns with at this time. RN updated.
[2024-05-27 12:46] VITALS: BP 125/79; PULSE 98; RESP 16; TEMP 36.8; O2SAT 99
[2024-05-28 11:57] VITALS: BP 140/89; PULSE 65; RESP 18; TEMP 36.8; O2SAT 100
== END 2024-05-27 13:44 | disposition home or self-care (01) | DRG 807 ==
LOC: ANHLDR 23:38 → ANHOB2 05-26 03:02
PROVIDERS: Admitting Provider Obstetrics & Gynecology Gynecology; Visit Provider Obstetrics & Gynecology Gynecology
DX: O14.94 Unspecified pre-eclampsia, complicating childbirth (principal); Z37.0 Single live birth; Z3A.39 39 weeks gestation of pregnancy; O99.824 Streptococcus B carrier state complicating childbirth; O70.1 Second degree perineal laceration during delivery
CPT/HCPCS: 36415; 85014; 85018; 85025; 86593; 86703; 86850; 86900; 86901; A9270; G0432; J0290; J2405; J2590; J2795; J3010; J7120

== ENCOUNTER 2024-05-29 11:10 | Outpatient (CLI) | payer OTHER, SELFPAY ==
[2024-05-29 11:30] VITALS: BP 138/89; PULSE 104
[2024-05-29 11:45] VITALS: BP 133/87; PULSE 99
--- NOTE | 2024-05-29 11:45 | PC.NURSE ---
1136- Spoke with Dr. Paredes regarding patient admission for headache, which is worse when standing and sitting than laying down. Bp's reviewed. Orders for anesthesia to see patient.
--- NOTE | 2024-05-29 11:49 | PC.NURSE ---
1138- Called and spoke with Dr. Monique, will come see patient when available.
[2024-05-29 12:00] VITALS: BP 131/89; PULSE 84
[2024-05-29 12:15] VITALS: BP 135/89; PULSE 96
[2024-05-29 12:30] VITALS: BP 133/86; PULSE 99
[2024-05-29 12:45] VITALS: BP 129/79; PULSE 89
--- NOTE | 2024-05-29 12:50 | PC.NURSE ---
9550- Spoke with Dr. Monique for orders for patient to eat. Regular diet ordered. Will come see patient soon.
--- NOTE | 2024-05-29 13:07 | WPDANLDPN2 ---
Anes-Prog Note L&D Date/Time: 05/29/24 13:07 Neuro status: Neuro function grossly intact. Cardiovascular status: normal Respiratory status: normal Airway patency: baseline Mental status: baseline Post-Op hydration status: normal Vital Signs: Last Vital Signs Pulse 89 05/29/24 12:45 BP 129/79 05/29/24 12:45 Pain score (VAS): 2 Post-procedural complaints: none Patient feedback: Patient had possible dura puncture on 05/25. Patient has been doing fine up until last night on 05/28 she had a horrible 10/10 headache around midnight. She took tylenol and felt better when she woke up at 0600 but still not completely gone. I discussed with her options of blood patch vs conservative approach. Patient is sitting holding baby with lights on and TV on and says its very manageable at this point. I discussed the likelihood of this actually being a PDPH as low especially with quick improvement of symptoms, and onset of 3-4 days later. She agreed to lot of hydration and caffeine. I told her if symptoms return she can call or [facility].
--- NOTE | 2024-05-29 13:11 | PC.NURSE ---
1305- Dr. Mohan at bedside for assessment. Patient agreeable to conservative management. Will discharge to home.
== END 2024-05-29 13:22 | disposition home or self-care (01) ==
LOC: ANHOBOP 11:16 → ANHOBPP 11:18
PROVIDERS: Visit Provider Obstetrics & Gynecology Gynecology
DX: O89.4 Spinal and epidural anesthesia-induced headache during the puerperium (principal)
CPT/HCPCS: 99199

== ENCOUNTER 2024-10-10 08:40 | Emergency (ER) | payer BC, SELFPAY ==
--- NOTE | 2024-10-10 08:48 | ED_ITS ---
HPI - Ear Problem General Chief complaint: Ear Stated complaint: Ear Pain Time Seen by Provider: 10/10/24 08:57 Source: patient, RN notes reviewed and old records reviewed Mode of arrival: ambulatory Limitations: no limitations History of Present Illness HPI Narrative: 23-year-old female presents to the [facility] with complaints of right ear pain. Pain for 1 day, URI symptoms for 2-3 days. Denies fevers. Treatment prior to arrival: none Related Data Home Medications ?Medication ?Instructions ?Recorded ?Confirmed ?Last Taken ?Type norethindrone 1 mg-ethinyl tablet 10/10/24 Unknown Hi story estradiol 20 mcg (24)-iron 75 mg (4) tablet (Aurovela 24 Fe) Allergies Allergy/AdvReac Type Severity Reaction Status Date / Time No Known Allergies Allergy Verified 10/10/24 08:57 Review of Systems Review of Systems: All systems reviewed & are unremarkable except as noted in HPI and below Constitutional: Constitutional: Reports no additional constitutional complaints ENT: Reports as per HPI Cardiovascular: Cardiovascular: Reports no additional cardiovascular complaints, Denies chest pain and Denies dyspnea Respiratory: Respiratory: Reports no additional respiratory complaints, Denies chest congestion, Denies cough and Denies dyspnea Musculoskeletal: Musculoskeletal: Reports no additional musculoskeletal complaints Integumentary/Breasts: Skin/Breast: Reports system reviewed and no additional complaints, except as docu PMFSH Family History Family History Grandparent Cancer Grandparent Colon cancer Hyperlipemia Social History Social History Smoking status: Never smoker Second hand tobacco smoke exposure: No Substance use: never Do You Feel Safe in your Home?: Yes Lack of Transportation: No Lack of Food: Never True Current Housing: I Have Housing Concerned About Future Housing: No Difficulty Paying Gas/Electric Bills: No Difficulty Paying for Meds: No Currently Unemployed: No Education: Bachelor's Degree Difficulty w/ Childcare or Family Care: No Spiritual care concerns: No Comments At the time of my signature, I reviewed and agree with the nursing past medical, surgical, social, and family history. There is no relevant family history pertinent to the patient complaint. Exam Const: General: cooperative, healthy appearing, comfortable, no acute distress, well developed, alert and well nourished Nutritional Appearance: well nourished Orientation/consciousness: patient oriented x3 Limitations: no limitations HENMT: Head: normal to inspection Ears: hearing grossly normal bilaterally, external ears normal, EAC's normal, mastoids normal, no periauricular adenopathy and TM abnormal with fluid behind the TM on the right Mouth: Yes Normal oral and palatal mucosa present, Yes lip normal, Yes tongue normal and Yes moist mucous membranes Throat: posterior oropharynx normal, uvula midline and uvula not displaced Eyes: General: appearance normal, both eyes and all related structures Alignment and Position: alignment normal Neck: Neck: normal visual inspection, full ROM, no lymphadenopathy and no meningeal signs Chest: Chest palpation & inspection: normal inspection of the chest Resp: Effort & Inspection: normal respiratory effort and able to speak in complete sentences Auscultation: clear to auscultation bilaterally, 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, no rales, no rhonchi and no wheezes Cardio: Rate: regular rate Skin: General skin exam: normal color and no rashes or lesions noted Neuro: General: patient oriented x3, gait normal, moves all extremities and no meningeal signs Cognition (Neuro): normal cognition Speech: normal speech Gait exam (Neuro): Normal gait present Extrem: General: normal to inspection, full ROM, capillary refill normal and normal gait Psych: Appearance: grossly normal and well kempt Mental Status: mental status grossly normal Speech and movement: Normal speech and movement present and Clear speech present Affect: normal affect Attitude: cooperative Course Course Level of Care: Express Care Visit Vital Signs Vital signs: Vital Signs Temperature 97.7 F 10/10/24 08:49 Pulse Rate 91 10/10/24 08:49 Respiratory Rate 16 10/10/24 08:49 Blood Pressure 119/79 10/10/24 08:49 Pulse Oximetry 100 10/10/24 08:49 Oxygen Delivery Room Air 10/10/24 08:49 Temperature 97.7 F 10/10/24 08:49 Pulse Rate 91 10/10/24 08:49 Respiratory Rate 16 10/10/24 08:49 Blood Pressure 119/79 10/10/24 08:49 Pulse Oximetry 100 10/10/24 08:49 Oxygen Delivery Room Air 10/10/24 08:49 Reviewed Medical Decision Making MDM Narrative Medical decision making narrative: Patient sitting comfortably in exam room. Nontoxic, vitals stable. Patient in no acute distress Patient presents 1 day history of ear pain. Fluid noted but no signs of infection. Discussed [id number] treatments for URI symptoms as well. Patient verbalized understanding. Discharge instructions reviewed with patient, as well as provided in writing per nursing staff. The instructions also include specific and strict return/GO TO THE ER as well as f/u information. All questions have been answered, and the patient deny any further questions with discharge and discharge plan. Some parts of this dictation were generated by voice recognition software and may contain typographical and/or grammatical inaccuracies. Differential Diagnosis Differential Diagnosis: Otitis media, serous otitis, otitis externa, URI Medical Records Medical records reviewed: Yes I reviewed the external patient's medical records. Vital Signs Vital Signs: Vital Signs Temperature 97.7 F 10/10/24 08:49 Pulse Rate 91 10/10/24 08:49 Respiratory Rate 16 10/10/24 08:49 Blood Pressure 119/79 10/10/24 08:49 Pulse Oximetry 100 10/10/24 08:49 Oxygen Delivery Room Air 10/10/24 08:49 Temperature 97.7 F 10/10/24 08:49 Pulse Rate 91 10/10/24 08:49 Respiratory Rate 16 10/10/24 08:49 Blood Pressure 119/79 10/10/24 08:49 Pulse Oximetry 100 10/10/24 08:49 Oxygen Delivery Room Air 10/10/24 08:49 Reviewed Lab Data Lab results reviewed: Yes I reviewed the patient's lab results. Labs: Reviewed Critical Care Time Critical Care Time Critical Care Time: No Discharge Plan Discharge Clinical Impression: Acute pain of right ear, Fluid level behind tympanic membrane of right ear Patient Disposition: Home Condition: Stable Instructions: Fluid In The Ear (Serous Otitis Media) (ED) Additional Instructions: It is very important to treat your symptoms. Drink plenty of water, Gatorade, Pedialyte, ice pops or Jell-O. -Alternate Tylenol and Motrin per package directions for fever or pain. You can alternate every 4 hours -Antihistamine medication such as Zyrtec/Claritin/Altagracia during the day can help improve symptoms. -doing daily nasal irrigations can help relieve pressure your sinuses. Things like a Neti pot -Use Flonase twice a day for 5 days then daily to help reduce the inflammation and dry up your sinuses. -You can also use Mucinex. Be sure to drink plenty of water with this medication at least 8 ounces with every dose and it is important to drink 8 to 10 glasses of water per day. Water is a natural decongestant -Eat and drink things that are easy to swallow, like tea or soup, or popsicles. -Oral rinses such as: Salt water gargles and/or may use topical anesthetic (eg. Chloraseptic spray) or lozenges to relieve dryness or throat pain). -Frequent hand washing or hand raise drill operator is one of the best ways to prevent spread of infection. -Using a vaporizer or humidifier at night will also help thin secretions and help with coughing up phlegm. -Follow up with primary care provider in 7-10 days if condition is not improving - For new or worsening symptoms go directly to the nearest ER Patient Language: Tunisian Prescriptions: No Action Aurovela 24 Fe 1 mg-20 mcg (24)/75 mg (4) tablet ferrous sulfate [Iron (ferrous sulfate)] 325 mg (65 mg iron) tablet 325 mg PO DAILY Qty: 60 3RF Follow-up/Referrals: PHYSICIAN,GRADUATE RESEARCH ASSISTANT [Primary Care Provider, Internal Medicine] Stand Alone Forms: Work/School Release IP Time of Disposition: 09:11
[2024-10-10 08:49] VITALS: BP 119/79; PULSE 91; RESP 16; TEMP 36.5; O2SAT 100
== END 2024-10-10 09:13 | disposition home or self-care (01) ==
PROVIDERS: Emergency Provider Nurse Practitioner
DX: H92.01 Otalgia, right ear (principal); H73.891 Other specified disorders of tympanic membrane, right ear
CPT/HCPCS: 99211; G0463